=== PATIENT | female | born 1950 | race Caucasian/White ===

== ENCOUNTER → 2017-01-08 | Outpatient (CLI) | payer BC ==
[~2017-01-08] MED LIST: ACET-2321 PO; CETI10CA19 PO; CYAN500T18 PO; HYDR25TA PO; OMEP20CA10 PO; [UNRECOGNIZED DRUG - OTHER] PO
[2017-01-08 09:14] LABS: ALBUMIN 4.3 G/DL (3.5-5.0); ALBUMIN/GLOBULIN RATIO 1.7 RATIO (1.1-2.2); ALKALINE PHOSPHATASE 96 U/L (38-126); ALT (SGPT) 60 U/L (9-52); AST (SGOT) 49 U/L (14-36); TOTAL PROTEIN 6.9 G/DL (6.3-8.2)
== END ==
LOC: LAB 08:41
PROVIDERS: ATTEND Family Medicine
DX: E55.9 Vitamin D deficiency, unspecified (principal); I10 Essential (primary) hypertension
CPT/HCPCS: 36415; 80076; 82306